=== PATIENT | female | born 1985 | race Caucasian/White ===

== ENCOUNTER 2019-01-06 12:54 | Inpatient (IN) | payer BC ==
[~2019-01-06] VITALS: Ht 157.5 cm; Wt 56.2 kg
[2019-01-06] MEDS ORDERED: FERR325E14 PO (13:50)
[2019-01-06] MEDS ORDERED: OSC500 PO (13:50)
[2019-01-06] MEDS ORDERED: PREN-380 PO (13:50)
[2019-01-06 14:13] VITALS: BP 105/69
[2019-01-06 15:15] LABS: BASOPHILS % (AUTO) 0.4 % (0.0-2.0); EOSINOPHILS % (AUTO) 0.4 % (0.0-4.0); HEMATOCRIT 40.2 % (36-48); HEMOGLOBIN 13.5 g/dL (12.0-16.0); LYMPHOCYTES # (AUTO) 1.7 K/uL (2.5-16.5); LYMPHOCYTES % (AUTO) 25.4 % (20.5-51.1); MEAN CORPUSCULAR HEMOGLOBIN 29 pg (27-31); MEAN CORPUSCULAR HGB CONC 34 g/dL (33-37); MEAN CORPUSCULAR VOLUME 87.1 fL (80-94); MONOCYTES # (AUTO) 0.5 K/uL (0.8-1.0); MONOCYTES % (AUTO) 7.9 % (1.7-9.3); NEUTROPHILS # (AUTO) 4.4 K/uL (1.8-7.7); NEUTROPHILS % (AUTO) 65.9 % (42.2-75.2); PLATELET COUNT (AUTO) 181 K/uL (140-450); RED BLOOD CELL COUNT(AUTO) 4.61 MIL/uL (4.20-5.40); RED CELL DISTRIBUTION WIDTH 14.1 % (11.6-13.7); WHITE BLOOD COUNT (AUTO) 6.8 K/uL (4.8-10.8)
[2019-01-06] MEDS ORDERED: OXYTOCIN 20 UNITS/LR PREMIX 1,000 ML IV ONE (21:52)
[2019-01-06] MEDS ORDERED: OXYTOCIN 20 UNITS in LACTATED RINGERS 1,000 ML IV SCH (22:10)
[2019-01-06] MEDS ORDERED: guaiFENesin 20 MG/ML UDC ONE (22:41)
[2019-01-06] MEDS: LACTATED RINGERS 1,000 ML IV SCH (22:49)
[2019-01-06] MEDS ORDERED: guaiFENesin 20 MG/ML UDC PO SCH (23:00)
[2019-01-07] MEDS ORDERED: CITRIC ACID/SODIUM CITRATE 30 ML UDC PO ONE (00:35)
[2019-01-07] MEDS ORDERED: diphenhydrAMINE 50 MG/ML VIAL IVP PRN ×2 (00:45→03:25)
[2019-01-07] MEDS ORDERED: ONDANSETRON 4 MG/2 ML VIAL IVP PRN ×3 (00:45→03:25)
[2019-01-07] MEDS ORDERED: CITRIC ACID/SODIUM CITRATE 30 ML UDC ONE (02:32)
[2019-01-07] MEDS ORDERED: ceFAZolin 1,000 MG VIAL ONE (02:32)
[2019-01-07] MEDS ORDERED: METHYLERGONOVINE 0.2 MG/ML AMP ONE ×2 (02:50→02:58)
[2019-01-07] MEDS ORDERED: ePHEDrine 50 MG/ML VIAL ONE (02:58)
[2019-01-07] MEDS ORDERED: GLYCOPYRROLATE 0.2 MG/ML VIAL ONE (02:58)
[2019-01-07] MEDS ORDERED: hydrALAZINE 20 MG/ML VIAL ONE (02:58)
[2019-01-07] MEDS ORDERED: MORPHINE PRES FREE 10 MG/10 ML AMP IV ONE (03:02)
[2019-01-07] MEDS ORDERED: fentaNYL 0.05 MG/ML VIAL ONE (03:02)
[2019-01-07] MEDS ORDERED: NALBUPHINE 10 MG/ML AMP IVP PRN (03:25)
[2019-01-07] MEDS ORDERED: NALOXONE 0.4 MG/ML VIAL IVP PRN ×3 (03:25)
[2019-01-07] MEDS ORDERED: KETOROLAC 30 MG/ML VIAL IVP PRN (03:25)
--- NOTE | 2019-01-07 03:50 | NUR ---
called to OR for , arrived at 032, departed at 0348
[2019-01-07] MEDS ORDERED: MEPERIDINE 25 MG/ML SYR ONE (04:00)
[2019-01-07] MEDS ORDERED: diphenhydrAMINE 50 MG/ML VIAL ONE (04:25)
[2019-01-07] MEDS ORDERED: ONDANSETRON 4 MG/2 ML VIAL ONE (04:25)
[2019-01-07] MEDS ORDERED: oxyCODONE/APAP 5/325 MG 1 TAB TAB PO PRN (04:40)
[2019-01-07] MEDS ORDERED: MEASLES, MUMPS, AND RUBELLA 1 VIAL SQVAC PRN (04:40)
[2019-01-07] MEDS ORDERED: METHYLERGONOVINE 0.2 MG/ML AMP IM PRN ×2 (04:40→18:45)
[2019-01-07] MEDS ORDERED: MEPERIDINE 25 MG/ML SYR IVP PRN (05:00)
[2019-01-07] MEDS ORDERED: KETOROLAC 30 MG/ML VIAL IM/IVP SCH (06:00)
[2019-01-07] MEDS: LACTATED RINGERS 1,000 ML IV SCH ×2 (08:26→16:04)
--- NOTE | 2019-01-07 08:29 | NUR ---
PATIENT HAS BEEN SCREENED AND CATEGORIZED LOW NUTRITION RISK. PATIENT WILL BE SEEN WITHIN 7 DAYS OF ADMISSION. 01/13/[address]
[2019-01-07] MEDS ORDERED: BISACODYL 10 MG SUPP RC SCH (09:00)
[2019-01-07 12:44] LABS: BASOPHILS % (AUTO) 0.2 % (0.0-2.0); EOSINOPHILS % (AUTO) 0.3 % (0.0-4.0); HEMATOCRIT 34.1 % (36-48); HEMOGLOBIN 11.3 g/dL (12.0-16.0); LYMPHOCYTES # (AUTO) 1.7 K/uL (2.5-16.5); LYMPHOCYTES % (AUTO) 15.8 % (20.5-51.1); MEAN CORPUSCULAR HEMOGLOBIN 29 pg (27-31); MEAN CORPUSCULAR HGB CONC 33 g/dL (33-37); MEAN CORPUSCULAR VOLUME 88.1 fL (80-94); MONOCYTES # (AUTO) 0.6 K/uL (0.8-1.0); MONOCYTES % (AUTO) 5.8 % (1.7-9.3); NEUTROPHILS # (AUTO) 8.6 K/uL (1.8-7.7); NEUTROPHILS % (AUTO) 77.9 % (42.2-75.2); PLATELET COUNT (AUTO) 147 K/uL (140-450); RED BLOOD CELL COUNT(AUTO) 3.86 MIL/uL (4.20-5.40); RED CELL DISTRIBUTION WIDTH 14.1 % (11.6-13.7)
[2019-01-07] MEDS ORDERED: LACTATED RINGERS 1,000 ML IV SCH (18:44)
[2019-01-07] MEDS ORDERED: PROMETHAZINE 25 MG/ML VIAL IVP PRN (18:45)
[2019-01-07] MEDS ORDERED: CARBOPROST 250 MCG/ML AMP IM PRN (18:45)
[2019-01-08] MEDS ORDERED: ONDANSETRON 4 MG/2 ML VIAL ONE (08:23)
[2019-01-08] MEDS: ONDANSETRON 4 MG/2 ML VIAL IVP PRN ×2 (08:37→14:22)
[2019-01-08] MEDS ORDERED: ONDANSETRON 4 MG/2 ML VIAL IVP PRN (15:30)
[2019-01-08] MEDS ORDERED: ONDANSETRON 4 MG/2 ML VIAL IVP SCH (15:30)
[2019-01-08] MEDS: METOCLOPRAMIDE 10 MG/2 ML INJ VIAL IVP PRN (15:57)
[2019-01-08] MEDS: LACTATED RINGERS 1,000 ML IV SCH (15:57)
[2019-01-08] MEDS: ONDANSETRON 8 MG in NACL 0.9% 50 ML IVP PRN (22:09)
[2019-01-09] MEDS: ONDANSETRON 8 MG in NACL 0.9% 50 ML IVP PRN ×2 (03:59→10:52)
[2019-01-09] MEDS: METOCLOPRAMIDE 10 MG/2 ML INJ VIAL IVP PRN (04:00)
[2019-01-09] MEDS: LACTATED RINGERS 1,000 ML IV SCH (10:57)
[2019-01-10] MEDS ORDERED: BISACODYL 5 MG TABEC PO PRN (09:15)
== END 2019-01-10 15:25 | disposition home or self-care (01) | DRG 788 ==
LOC: PREOBSVTOIN 13:15 → MLD 13:33 → MFCC 01-07 06:27
PROVIDERS: ADMIT Obstetrics & Gynecology; ATTEND Obstetrics & Gynecology
PROC: 3E0234Z Introduction of Serum, Toxoid and Vaccine into Muscle, Percutaneous Approach (ICD-10-PCS; 2019-01-07)
PROC: 3E0134Z Introduction of Serum, Toxoid and Vaccine into Subcutaneous Tissue, Percutaneous Approach (ICD-10-PCS; 2019-01-07)
PROC: 10D00Z1 Extraction of Products of Conception, Low, Open Approach (ICD-10-PCS; principal; 2019-01-07 03:00)
DX: O45.93 Premature separation of placenta, unspecified, third trimester (principal); O61.0 Failed medical induction of labor; Z3A.40 40 weeks gestation of pregnancy; Z37.0 Single live birth; Z88.8 Allergy status to other drugs, medicaments and biological substances; Z23 Encounter for immunization
CPT/HCPCS: 36415; 85025; 86592; 86886; 86900; 86901; 87086; J0360; J0690; J1200; J2175; J2210; J2270; J2405; J2590; J2765; J3010; J3490; J7060; J7120